=== PATIENT | female | born 1955 | race Caucasian/White ===

== ENCOUNTER → 2021-05-16 | Outpatient (CLI) | payer OTHER ==
[~2021-05-16] MED LIST: MEDROL DOSEPAK4 MG PO; MOTRIN800 MG PO; NORCO 5-325 TA1 EACH PO; SINGULAIR4 MG PO; ZOFRAN4 MG PO; ZOLOFT50 MG PO
== END | disposition home or self-care (01) ==
LOC: RAD 00:30
PROVIDERS: ATTEND Orthopaedic Surgery
DX: M19.041 Primary osteoarthritis, right hand (principal); M25.741 Osteophyte, right hand